=== PATIENT | female | born 1970 | race African-American/Black ===

== ENCOUNTER 2018-04-17 18:59 | Emergency (ER) | payer MEDICARE, MEDICAID ==
[~2018-04-17] VITALS: Ht 165.1 cm; Wt 86.0 kg
[~2018-04-17 18:59] MED LIST: CLON1PAT10 TD; CLON1TAB PO; DIPH25CA83 PO; ONDA4TAB5 PO; QUET100T PO; SERT100T PO
[2018-04-17] MEDS ORDERED: ONDANSETRON HCL 4MG/2ML INJ IV ONE (20:00)
[2018-04-17] MEDS ORDERED: SODIUM CHLORIDE 0.9% 1,000 ML IV ONE (20:00)
[2018-04-17] MEDS ORDERED: MORPHINE SULFATE 4 MG/ML CPJ (NOT FOR IM USE) IV ONE (20:00)
[2018-04-17] MEDS ORDERED: MORPHINE SULFATE 10 MG/ML CPJ IV PRN (20:45)
[2018-04-17] MEDS ORDERED: MORPHINE SULFATE 4 MG/ML CPJ (NOT FOR IM USE) IV STA (22:20)
[2018-04-17] MEDS ORDERED: ONDANSETRON HCL 4MG/2ML INJ IV STA (22:20)
[2018-04-17] MEDS ORDERED: MORPHINE SULFATE 10 MG/ML CPJ IV STA (22:29)
[2018-04-18] MEDS ORDERED: DIPHENHYDRAMINE 50MG/ML VIAL IV ONE
[2018-04-18] MEDS ORDERED: HYDROCODONE/ACETAMINOPHEN 5/325MG TABLET PO ONE (01:30)
[2018-04-18 02:04] VITALS: BP 133/67
== END 2018-04-18 02:05 | disposition home or self-care (01) ==
LOC: ER 18:59
DX: K31.84 Gastroparesis (principal); I13.11 Hypertensive heart and chronic kidney disease without heart failure, with stage 5 chronic kidney disease, or end stage renal disease; N18.6 End stage renal disease; Z99.2 Dependence on renal dialysis; Z88.8 Allergy status to other drugs, medicaments and biological substances; Z88.2 Allergy status to sulfonamides
CPT/HCPCS: 36415; 80048; 96361; 96374; 96375; 96376; 99283; J1200; J2270; J2405; J7030

== ENCOUNTER 2018-05-11 03:20 | Inpatient (IN) | payer MEDICARE, MEDICAID ==
[~2018-05-11] VITALS: Ht 165.1 cm; Wt 83.9 kg
[2018-05-11] MEDS ORDERED: ONDANSETRON HCL 4MG/2ML INJ IV STA (03:42)
[2018-05-11] MEDS ORDERED: SODIUM CHLORIDE 0.9% 1,000 ML IV ONE (03:42)
[2018-05-11] MEDS ORDERED: MORPHINE SULFATE 4 MG/ML CPJ (NOT FOR IM USE) IV STA (03:42)
[2018-05-11] MEDS ORDERED: LORAZEPAM 2MG/ML CPJ IV ONE ×3 (03:45→07:45)
[2018-05-11 04:18] LABS: EOSINOPHILS % 1.7 % (0.0-5.0); HEMATOCRIT. 37.2 % (36.0-48.0); HEMOGLOBIN. 12.2 g/dL (12.0-16.0); LYMPHOCYTES % 14.4 % (20.0-50.0); MEAN CORPUSCULAR HEMOGLOBIN 27.5 pg (28.0-32.0); MEAN CORPUSCULAR VOLUME 83.6 fL (81.0-99.0); MEAN PLATELET VOLUME 9.2 fl (7.4-10.4); MONOCYTES % 7.9 % (2.0-8.0); PLATELET 247 x1000/uL (130-400); RED BLOOD CELL COUNT 4.45 mill/uL (4.2-5.4); RED CELL DISTRIBUTION WIDTH 19.6 % (11.6-14.6)
[2018-05-11 04:27] LABS: CHLORIDE 98 mEq/L (98-107)
[2018-05-11 04:28] LABS: INR 1.1; PROTHROMBIN TIME 11.4 sec (9.1-11.1)
[2018-05-11] MEDS ORDERED: ONDANSETRON HCL 4MG/2ML INJ IV ONE (04:30)
[2018-05-11] MEDS ORDERED: FAMOTIDINE 20MG/2ML VIAL IV ONE (04:30)
[2018-05-11 04:34] LABS: ETHANOL BLOOD < 10 mg/dL
[2018-05-11] MEDS ORDERED: INSULIN REGULAR (HUMULIN R) 300UNITS/3ML SUBCUT ONE (05:45)
[2018-05-11] MEDS ORDERED: ACETAMINOPHEN 325MG TABLET PO PRN (07:45)
[2018-05-11] MEDS ORDERED: GUAIFENESIN 200MG/10ML SUGAR FREE UDC PO PRN (07:45)
[2018-05-11] MEDS ORDERED: CLONIDINE 0.1MG TABLET PO PRN (07:45)
[2018-05-11] MEDS: HYDROMORPHONE HCL/PF 2MG/ML CPJ IV PRN ×3 (08:14→18:00)
[2018-05-11] MEDS ORDERED: LEVE250T2 MT (11:58)
[2018-05-11] MEDS ORDERED: SEVE800T8 MT (11:58)
[2018-05-11] MEDS ORDERED: ESCI10TA MT (11:58)
[2018-05-11] MEDS ORDERED: BUSP5TAB3 MT ×2 (11:58→12:01)
[2018-05-11] MEDS ORDERED: PROT40 MT (11:58)
[2018-05-11] MEDS ORDERED: HYDR-4133 MT ×2 (11:58→12:01)
[2018-05-11] MEDS ORDERED: PREG100C MT (11:58)
[2018-05-11 12:00] VITALS: BP 157/82
[2018-05-11] MEDS ORDERED: SERTRALINE HCL 100MG TABLET PO SCH (12:00)
[2018-05-11 12:18] VITALS: BP 157/82
[2018-05-11] MEDS: PANTOPRAZOLE SODIUM 40 MG/VIAL IV SCH ×2 (12:36→12:39)
[2018-05-11] MEDS: MAGNESIUM/ALUMINUM HYDROXIDE/SIMETHICONE 30ML UDC PO PRN (12:36)
[2018-05-11] MEDS: LOSARTAN POTASSIUM 25 MG TABLET PO SCH (12:37)
[2018-05-11] MEDS: ONDANSETRON HCL 4MG/2ML INJ IV PRN ×2 (12:37→18:39)
[2018-05-11] MEDS ORDERED: CLONAZEPAM 1MG TABLET PO SCH (14:00)
[2018-05-11 16:00] VITALS: BP 144/84
[2018-05-11] MEDS ORDERED: DEXTROSE 50% WATER 50ML SYRINGE IV PRN (16:30)
[2018-05-11] MEDS: INSULIN LISPRO 100 UNITS/ML SUBCUT SCH ×2 (18:10→20:31)
[2018-05-11] MEDS: BLOOD SUGAR DIAGNOSTIC STRIP TEST SCH ×2 (18:14→20:30)
[2018-05-11 19:56] VITALS: BP 137/79
[2018-05-11] MEDS: DIPHENHYDRAMINE 25MG CAPSULE PO PRN (20:28)
[2018-05-11] MEDS: QUETIAPINE FUMARATE 100MG TABLET PO SCH (20:28)
[2018-05-12 00:05] VITALS: BP 103/56
[2018-05-12 04:00] VITALS: BP 110/75
[2018-05-12] MEDS: HYDROMORPHONE HCL/PF 2MG/ML CPJ IV PRN ×5 (04:44→22:06)
[2018-05-12] MEDS: ONDANSETRON HCL 4MG/2ML INJ IV PRN ×4 (04:44→22:05)
[2018-05-12] MEDS: BLOOD SUGAR DIAGNOSTIC STRIP TEST SCH ×4 (07:40→20:54)
[2018-05-12 08:00] VITALS: BP 126/73
[2018-05-12] MEDS: INSULIN LISPRO 100 UNITS/ML SUBCUT SCH ×4 (08:05→20:57)
[2018-05-12] MEDS ORDERED: DIPHENHYDRAMINE 50MG/ML VIAL IV SCH (09:15)
[2018-05-12] MEDS: LOSARTAN POTASSIUM 25 MG TABLET PO SCH (09:19)
[2018-05-12] MEDS: PANTOPRAZOLE SODIUM 40 MG/VIAL IV SCH (09:19)
[2018-05-12] MEDS: LACTULOSE 20G/30ML UDC PO PRN (09:20)
[2018-05-12 10:10] LABS: BASOPHILS % 0.9 % (0.0-2.0); EOSINOPHILS % 7.7 % (0.0-5.0); HEMATOCRIT. 35.4 % (36.0-48.0); HEMOGLOBIN. 11.5 g/dL (12.0-16.0); LYMPHOCYTES % 28.1 % (20.0-50.0); MEAN CORPUSCULAR HEMOGLOBIN 27.6 pg (28.0-32.0); MEAN CORPUSCULAR VOLUME 85.2 fL (81.0-99.0); NEUTROPHILS % 56.3 % (40.0-76.0); PLATELET 212 x1000/uL (130-400); RED BLOOD CELL COUNT 4.15 mill/uL (4.2-5.4); RED CELL DISTRIBUTION WIDTH 19.5 % (11.6-14.6)
[2018-05-12 10:20] LABS: CHLORIDE 99 mEq/L (98-107)
[2018-05-12] MEDS: DIPHENHYDRAMINE 25MG CAPSULE PO PRN (14:20)
[2018-05-12 16:00] VITALS: BP 104/71
[2018-05-12] MEDS ORDERED: DIPHENHYDRAMINE 50MG/ML VIAL IV ONE (17:30)
[2018-05-12] MEDS: DIPHENHYDRAMINE 50MG/ML VIAL IV PRN ×2 (17:50→23:02)
[2018-05-12 20:06] VITALS: BP 119/77
[2018-05-12] MEDS: QUETIAPINE FUMARATE 100MG TABLET PO SCH (20:54)
[2018-05-13 00:05] VITALS: BP 110/60
[2018-05-13 04:00] VITALS: BP 106/63
[2018-05-13] MEDS: HYDROMORPHONE HCL/PF 2MG/ML CPJ IV PRN ×5 (04:40→16:09)
[2018-05-13] MEDS: ONDANSETRON HCL 4MG/2ML INJ IV PRN ×2 (04:40→12:56)
[2018-05-13] MEDS: BLOOD SUGAR DIAGNOSTIC STRIP TEST SCH ×4 (07:24→22:39)
[2018-05-13 08:00] VITALS: BP 115/76
[2018-05-13] MEDS: INSULIN LISPRO 100 UNITS/ML SUBCUT SCH ×4 (08:29→22:41)
[2018-05-13] MEDS: DIPHENHYDRAMINE 50MG/ML VIAL IV PRN ×2 (08:34→16:09)
[2018-05-13] MEDS: FAMOTIDINE 20MG/2ML VIAL IV SCH (09:14)
[2018-05-13] MEDS: LOSARTAN POTASSIUM 25 MG TABLET PO SCH (09:14)
[2018-05-13 12:42] VITALS: BP 104/65
[2018-05-13 15:52] VITALS: BP 107/63
[2018-05-13 20:00] VITALS: BP 119/79
[2018-05-13] MEDS: QUETIAPINE FUMARATE 100MG TABLET PO SCH (22:39)
[2018-05-14] VITALS: BP 113/76
[2018-05-14] MEDS: ONDANSETRON HCL 4MG/2ML INJ IV PRN ×3 (03:30→15:07)
[2018-05-14] MEDS: HYDROMORPHONE HCL/PF 2MG/ML CPJ IV PRN ×4 (03:30→18:20)
[2018-05-14 04:00] VITALS: BP 133/81
[2018-05-14] MEDS: DIPHENHYDRAMINE 50MG/ML VIAL IV PRN (05:09)
[2018-05-14] MEDS: INSULIN LISPRO 100 UNITS/ML SUBCUT SCH ×3 (06:51→18:21)
[2018-05-14] MEDS: BLOOD SUGAR DIAGNOSTIC STRIP TEST SCH ×3 (06:51→17:56)
[2018-05-14 08:00] VITALS: BP 132/73
[2018-05-14] MEDS ORDERED: DIPHENHYDRAMINE 50MG/ML VIAL IV NR (08:30)
[2018-05-14] MEDS: LACTULOSE 20G/30ML UDC PO PRN (08:46)
[2018-05-14] MEDS: MAGNESIUM/ALUMINUM HYDROXIDE/SIMETHICONE 30ML UDC PO PRN (08:46)
[2018-05-14] MEDS: FAMOTIDINE 20MG/2ML VIAL IV SCH (08:47)
[2018-05-14] MEDS: LOSARTAN POTASSIUM 25 MG TABLET PO SCH (08:47)
[2018-05-14 11:41] LABS: BASOPHILS % 0.9 % (0.0-2.0); EOSINOPHILS % 8.2 % (0.0-5.0); LYMPHOCYTES % 25.3 % (20.0-50.0); MEAN CORPUSCULAR HEMOGLOBIN 27.9 pg (28.0-32.0); MEAN CORPUSCULAR VOLUME 85.3 fL (81.0-99.0); MEAN PLATELET VOLUME 8.7 fl (7.4-10.4); MONOCYTES % 10.8 % (2.0-8.0); NEUTROPHILS % 54.8 % (40.0-76.0); PLATELET 135 x1000/uL (130-400); RED BLOOD CELL COUNT 3.48 mill/uL (4.2-5.4); RED CELL DISTRIBUTION WIDTH 19.5 % (11.6-14.6)
[2018-05-14 11:42] LABS: HEMATOCRIT. 29.7 % (36.0-48.0); HEMOGLOBIN. 9.7 g/dL (12.0-16.0)
[2018-05-14 12:00] VITALS: BP 132/73
[2018-05-14 16:00] VITALS: BP 121/81
[2018-05-14 20:00] VITALS: BP 102/73
[2018-05-15] VITALS: BP 92/56
[2018-05-15] MEDS: INSULIN LISPRO 100 UNITS/ML SUBCUT SCH ×2 (00:11→09:12)
[2018-05-15] MEDS: QUETIAPINE FUMARATE 100MG TABLET PO SCH (00:11)
[2018-05-15] MEDS: BLOOD SUGAR DIAGNOSTIC STRIP TEST SCH ×2 (00:11→06:21)
[2018-05-15 00:16] VITALS: BP 122/77
[2018-05-15] MEDS: ONDANSETRON HCL 4MG/2ML INJ IV PRN (00:24)
[2018-05-15] MEDS: HYDROMORPHONE HCL/PF 2MG/ML CPJ IV PRN (00:25)
[2018-05-15 04:00] VITALS: BP 108/67
[2018-05-15 08:00] VITALS: BP 157/80
[2018-05-15] MEDS: LOSARTAN POTASSIUM 25 MG TABLET PO SCH (09:10)
[2018-05-15] MEDS: LACTULOSE 20G/30ML UDC PO PRN (09:10)
[2018-05-15] MEDS: MAGNESIUM/ALUMINUM HYDROXIDE/SIMETHICONE 30ML UDC PO PRN (09:10)
[2018-05-15 11:30] VITALS: BP 157/80
== END 2018-05-15 12:39 | disposition home or self-care (01) | DRG 73 ==
LOC: ER 03:20 → 7WST 06:15 → ENRESERV 10:37
PROVIDERS: ADMIT Hospitalist; ATTEND Hospitalist
PROC: 5A1D70Z Performance of Urinary Filtration, Intermittent, Less than 6 Hours Per Day (ICD-10-PCS; principal; 2018-05-12)
PROC: 5A1D70Z Performance of Urinary Filtration, Intermittent, Less than 6 Hours Per Day (ICD-10-PCS; 2018-05-14)
DX: E11.43 Type 2 diabetes mellitus with diabetic autonomic (poly)neuropathy (principal); N18.6 End stage renal disease; I12.0 Hypertensive chronic kidney disease with stage 5 chronic kidney disease or end stage renal disease; K31.84 Gastroparesis; D64.9 Anemia, unspecified; K59.00 Constipation, unspecified; Z99.2 Dependence on renal dialysis; F31.9 Bipolar disorder, unspecified; F41.9 Anxiety disorder, unspecified; E11.22 Type 2 diabetes mellitus with diabetic chronic kidney disease; Z88.2 Allergy status to sulfonamides; Z88.9 Allergy status to unspecified drugs, medicaments and biological substances; Z79.4 Long term (current) use of insulin; Z88.8 Allergy status to other drugs, medicaments and biological substances
CPT/HCPCS: 36415; 74018; 80048; 82962; 96361; 96372; 96374; 96375; 96376; 99285; C9113; G0482; J1170; J1200; J1815; J2060; J2270; J2405; J3490; J7030; Q0163

== ENCOUNTER 2018-06-25 02:25 | Emergency (ER) | payer MEDICARE, MEDICAID ==
[~2018-06-25] VITALS: Ht 170.2 cm; Wt 79.0 kg
[~2018-06-25 02:25] MED LIST changes: +BUSP5TAB3 MT; -CLON1PAT10 TD; -CLON1TAB PO; +ESCI10TA MT; +HYDR-4133 MT; +LEVE250T2 MT; +PREG100C MT; +PROT40 MT; -SERT100T PO; +SEVE800T8 MT
[2018-06-25] MEDS ORDERED: ONDANSETRON HCL 4MG/2ML INJ IV STA (03:49)
[2018-06-25] MEDS ORDERED: MORPHINE SULFATE 4 MG/ML CPJ (NOT FOR IM USE) IV STA (03:49)
[2018-06-25] MEDS ORDERED: SODIUM CHLORIDE 0.9% 1,000 ML IV ONE (03:49)
[2018-06-25 04:27] LABS: BASOPHILS % 0.2 % (0.0-2.0); EOSINOPHILS % 1.8 % (0.0-5.0); HEMATOCRIT. 27.1 % (36.0-48.0); HEMOGLOBIN. 9.1 g/dL (12.0-16.0); MEAN CORPUSCULAR HEMOGLOBIN 28.8 pg (28.0-32.0); MEAN CORPUSCULAR VOLUME 86.1 fL (81.0-99.0); MEAN PLATELET VOLUME 8.3 fl (7.4-10.4); MONOCYTES % 13.5 % (2.0-8.0); NEUTROPHILS % 71.5 % (40.0-76.0); PLATELET 152 x1000/uL (130-400); RED BLOOD CELL COUNT 3.15 mill/uL (4.2-5.4); RED CELL DISTRIBUTION WIDTH 20.4 % (11.6-14.6)
[2018-06-25 04:32] LABS: CHLORIDE 101 mEq/L (98-107); INR 1.2; PROTHROMBIN TIME 11.8 sec (9.1-11.1)
[2018-06-25] MEDS ORDERED: MORPHINE SULFATE 4 MG/ML CPJ (NOT FOR IM USE) IV ONE (06:00)
[2018-06-25] MEDS ORDERED: ONDANSETRON HCL 4MG/2ML INJ IV ONE (06:30)
[2018-06-25] MEDS ORDERED: HALOPERIDOL LACTATE 5MG/ML VIAL IM ONE (06:45)
[2018-06-25] MEDS ORDERED: LORAZEPAM 2MG/ML CPJ IV ONE (07:45)
[2018-06-25 10:58] VITALS: BP 160/89
== END 2018-06-25 11:15 | disposition home or self-care (01) ==
LOC: ER 02:25
DX: K31.84 Gastroparesis (principal); I13.11 Hypertensive heart and chronic kidney disease without heart failure, with stage 5 chronic kidney disease, or end stage renal disease; N18.6 End stage renal disease; Z99.2 Dependence on renal dialysis; Z88.8 Allergy status to other drugs, medicaments and biological substances; Z88.2 Allergy status to sulfonamides
CPT/HCPCS: 36415; 74176; 80053; 83690; 85025; 85610; 96361; 96372; 96374; 96375; 96376; 99284; J1630; J2060; J2270; J2405; J7030